=== PATIENT | female | born 1970 | race Caucasian/White ===

== ENCOUNTER 2018-12-30 18:48 | Emergency (ER) | payer SELFPAY ==
[~2018-12-30] VITALS: Ht 167.6 cm; Wt 120.0 kg
[2018-12-30] MEDS ORDERED: METF-816 PO (18:57)
[2018-12-30] MEDS ORDERED: LOSA25TA12 PO (18:57)
[2018-12-30] MEDS ORDERED: KETOROLAC 30MG/ML VIAL IV ONE (20:30)
[2018-12-31] MEDS ORDERED: HYDROMORPHONE HCL/PF 2MG/ML CPJ IV ONE (00:30)
[2018-12-31] MEDS ORDERED: ONDANSETRON HCL 4MG/2ML INJ IV ONE (00:30)
[2018-12-31 00:50] VITALS: BP 176/93
== END 2018-12-31 00:58 | disposition home or self-care (01) ==
LOC: ER 18:48
DX: S32.028A Other fracture of second lumbar vertebra, initial encounter for closed fracture (principal); W18.39XA Other fall on same level, initial encounter; Y93.89 Activity, other specified; Y92.89 Other specified places as the place of occurrence of the external cause; Y99.8 Other external cause status
CPT/HCPCS: 72128; 72131; 96374; 96375; 99284; J1170; J1885; J2405